=== PATIENT | male | born 1955 ===

== ENCOUNTER 2018-07-01 10:15 | Day surgery (SDC) | payer MEDICARE, OTHER ==
[2018-07-01 11:12] VITALS: BMI 30.9
[2018-07-01] MEDS ORDERED: Lidocaine 2% Jelly (Uro-Jet) ONE (13:05)
[2018-07-01] MEDS ORDERED: cefTRIAXone 1 gm 1 GM/100 ML BAG IVPB ONE (13:05)
[2018-07-01] MEDS ORDERED: Midazolam 2 MG/2 ML VIAL ONE (13:39)
[2018-07-01] MEDS ORDERED: Propofol 10 mg/ml Inj (20 ML) ONE (13:39)
[2018-07-01] MEDS ORDERED: Ciprofloxacin 400mg/200ml D5W 400 MG/200 ML BAG IVPB STA (13:58)
[2018-07-01] MEDS ORDERED: Oxycodone/Acetaminophen 5/325 mg Tab PO PRN (13:59)
[2018-07-01] MEDS ORDERED: HYDROmorphone 0.5 mg/0.5 ml ISec IVP PRN (13:59)
[2018-07-01] MEDS ORDERED: Gentamicin 80 mg in 0.9% NS 80 MG/100 ML BAG IVPB SCH (15:00)
[2018-07-01 15:24] VITALS: RESP 18
[2018-07-01 16:21] VITALS: BP 109/64; PULSE 83; TEMP 97.8; O2SAT 96
--- NOTE | 2018-07-02 03:19 | OP ---
PROCEDURE DATE: 07/01/2018 PREOPERATIVE DIAGNOSES: Elevated prostate-specific antigen, voiding dysfunction, irritative obstructive urinary complaints. POSTOPERATIVE DIAGNOSES: Elevated prostate-specific antigen, voiding dysfunction, irritative obstructive urinary complaints. PROCEDURE: Ultrasound of the prostate, ultrasound-guided prostate biopsy. SURGEON: Dante Rush MD COMPLICATIONS: There were no complications. SPECIMEN: Prostate core. ESTIMATED BLOOD LOSS: Less than 10 mL. FINDINGS: prostate calcification but there was no prostatic calcification. There were no specific hypoechoic lesions. We did prostate volume measures today. It measures to be the PSA is 14.2, the PSA density is 0.26. The height is 27. The width is 69.8. The length is 63. That feels a little long, probably about 4 cm prostate in length. Either way, we did random biopsies. No specific hypoechoic lesions. DESCRIPTION OF PROCEDURE: After obtaining informed consent, the patient was placed on the table. Routine monitors were placed. Time-out was called to confirm patient and the patient was placed in decubitus position. The probe was inserted via the rectum, we used BK 7.5 MHz. Took pictures in transverse and longitudinal. The volume is measured and described above. We now began random biopsies; resected left base, left mid, left apex, right base, right mid, right apex. A total of 12 cores were sent at each quadrant. Each one of the 6 spots. The patient tolerated the procedure well without complications. Post biopsy rectal exam within normal limits. Dante Rush MD
--- NOTE | 2018-07-02 03:19 | HP ---
REASON FOR ADMISSION: Elevated PSA workup. HISTORY OF PRESENT ILLNESS: The patient is a very pleasant gentleman, voiding dysfunction, irritative and obstructive complaints. Elevated PSA. He is here today for prostate ultrasound and biopsies. PAST MEDICAL AND SURGICAL HISTORY: As listed in the chart. No history of an ME or CVA. MEDICATIONS: See the medications on the chart. ALLERGIES: See on the chart. SOCIAL HISTORY: Essentially, otherwise, unremarkable. PHYSICAL EXAMINATION: GENERAL: Well-nourished female, in no apparent distress. VITAL SIGNS: Within normal limits. LUNGS: Clear. ABDOMEN: Overall soft and nontender. No flank mass appreciated. GENITOURINARY: Normal phallus without discharge. No testicular mass appreciated. RECTAL: . DIAGNOSES: Elevation in serum prostate-specific antigen. ASSESSMENT AND PLAN: At this time, we discussed options. The patient irritated and obstructive complaints. He is here today for a prostate ultrasound and ultrasound-guided prostate biopsy. PLAN: 1. An ultrasound of the prostate. 2. An ultrasound-guided prostate biopsy. 3. Antibiotic prophylaxis. 4. Further plans will follow. Dante Rush MD
== END 2018-07-01 16:18 | disposition home or self-care (01) ==
LOC: C.SDS 10:15
PROVIDERS: ATTEND Urology
DX: C61 Malignant neoplasm of prostate (principal)
CPT/HCPCS: 55700; 88305; 88342; J0696; J0744; J1580